=== PATIENT | female | born 1970 | race Caucasian/White ===

== ENCOUNTER 2017-05-14 17:50 | Emergency (ER) | payer OTHER ==
[2017-05-14 17:55] VITALS: TEMP 98.2
[2017-05-14] MEDS ORDERED: NS 500 ML IV ONE (17:57)
[2017-05-14] MEDS ORDERED: ASPIRIN 81 MG CHEWABLE TAB PO ONE (17:57)
--- NOTE | 2017-05-14 18:05 | CPEKG ---
Heart Rate: 74 RR Interval: 811 P-R Interval: 144 QRSD Interval: 86 QT Interval: 408 QTC Interval: 453 P [place]: 48 QRS [place]: 25 T Wave [place]: 35 EKG Severity - OTHERWISE NORMAL ECG - EKG Impression: SINUS RHYTHM EKG Impression: LOW VOLTAGE IN FRONTAL LEADS Electronically Signed By: Rashmi Reyna 14-May-2017 19:28:19
[2017-05-14 18:25] LABS: % IMMATURE GRANULYOCYTES 0.3 % (0.0-1.1); ABSOLUTE IMMATURE GRANULOCYTES 0.02 10^3/uL (0.00-0.10); ADD DIFF? NO; ADD MORPH? NO; ADD SCAN? NO; ATYPICAL LYMPHOCYTE FLAG 10 (0-99); FRAGMENT RBC FLAG 0 (0-99); HEMATOCRIT 39.9 % (38.0-47.0); HEMOGLOBIN 13.5 g/dL (12.6-16.3); LEFT SHIFT FLG 0 (0-99); LIPEMIA HEMOLYSIS FLAG 90 (0-99); MEAN CELL HEMOGLOBIN 32.4 pg (27.9-34.1); MEAN CELL HEMOGLOBIN CONCENTR. 33.8 g/dL (32.4-36.7); MEAN CELL VOLUME 95.7 fL (81.5-99.8); MEAN PLATELET VOLUME 9.2 fL (8.7-11.7); PLATELET CLUMPS FLAG 0 (0-99); PLATELET COUNT 322 10^3/uL (150-400); RED BLOOD CELL COUNT 4.17 10^6/uL (4.18-5.33); RED CELL DISTRIBUTION WIDTH 12.4 % (11.5-15.2)
[2017-05-14 18:35] LABS: INR 0.95 (0.83-1.16); PROTIME(PATIENT) 12.6 SEC (12.0-15.0)
[2017-05-14 18:36] LABS: APTT 25.2 SEC (23.0-38.0)
[2017-05-14 18:38] LABS: ANION GAP 9 mEq/L (8-16); CALCIUM 9.9 mg/dL (8.5-10.4); CARBON DIOXIDE 27 mEq/l (22-31); CHLORIDE 101 mEq/L (97-110); CREATININE 0.8 mg/dL (0.6-1.0); GLOMERULAR FILTRATION RATE > 60; GLUCOSE 92 mg/dL (70-100); POTASSIUM 3.8 mEq/L (3.5-5.2); SODIUM 137 mEq/L (134-144)
[2017-05-14 18:50] LABS: CREATINE KINASE-MB FRACTION 1.34 ng/mL (0.00-3.19); TROPONIN I < 0.012 ng/mL (0.000-0.034)
--- NOTE | 2017-05-14 19:01 | EDPHY ---
H & P Time Seen by Provider: 05/14/17 17:56 HPI/ROS: HPI Chest tightness, right leg pain. 38-year-old female by private vehicle with her . She has a history of rheumatoid arthritis. Her glassware finisher prescribed her diclofenac ointment for her arthritis. She applied some of this to her right leg on Monday evening as well as her right shoulder and right knee area. She reports that she developed a strain sensation in the right medial leg felt like something moving up through the vein of her right medial thigh. She reports that this resolved. She reports that yesterday evening she felt some chest tightness but no shortness of breath. This then persisted throughout the day. She did a Google search on her medications side effects. And is concerned because blood clots or a potential side effect. She is concerned about a blood clot in her right lower extremity and a possible pulmonary embolism as a source of her chest tightness. No history of diabetes. No history of hypertension, hyperlipidemia. No significant family history of coronary artery disease. She is a nonsmoker. ROS: Constitutional: No fever, no chills. No weakness. Eyes: No discharge. No changes in vision. ENT: No sore throat. No nasal congestion or rhinorrhea. Respiratory: No cough. No shortness of breath. Cardiac: As above, no palpitations. Gastrointestinal: No abdominal pain, no vomiting, no diarrhea. Genitourinary: No hematuria. No dysuria or increased frequency with urination. Musculoskeletal: No back pain. No neck pain. No myalgias or arthralgias. As above. Skin: No rashes. Neurological: No headache. No focal weakness or altered sensation. Past medical history: Migraine headaches, rheumatoid arthritis. As above. Social history: Nonsmoker. Social alcohol. Here with her . Physical Exam: General Appearance: Alert, mildly anxious. This patient is responding to questions appropriately and in full sentences. This patient appears well- hydrated and well-nourished. Eyes: Pupils equal and round no pallor or injection. No lid edema, erythema or injection. Respiratory: There are no retractions, lungs are clear to auscultation with good air movement bilaterally. Cardiovascular: Regular rate and rhythm. No murmur. Gastrointestinal: Abdomen is soft and nontender, no masses, bowel sounds normal. No focal tenderness at McBurney's point. No Hairston sign. Neurological: Motor sensory function is grossly intact. Cranial nerves are normal. Gait is normal. Skin: Warm and dry, no rashes. Musculoskeletal: Neck is supple and nontender. Extremities are symmetrical. Right lower extremity exam, no palpable cords on palpation of her calf and popliteal fossa area. Negative Owen sign. Normal soft tissues on palpation and inspection of her medial right thigh. Right lower extremity is neurovascularly intact. Psychiatric: No agitation. No depression. Database: EKG: EKG time is 6:03 p.m.; EKG shows a narrow complex normal sinus rhythm with a ventricular rate of 74. Low voltage in frontal leads noted. The LA, QRS, QT intervals are within normal limits. There are no ST-T wave changes indicative of ischemic or injury pattern. No evidence of right heart strain. Interpreted by me. Imaging: Chest x-ray AP portable; the cardiac mediastinal silhouette is unremarkable. No evidence of infiltrate or pneumothorax. No acute cardiopulmonary disease process noted. Interpreted by me. Procedures: Emergency department course: IV placed. Vital signs reviewed. EKG obtained and reviewed by myself. She was given 324 mg of chewed aspirin. 7:00 p.m., patient re-evaluated. Resting comfortably at this time. No shortness of breath. Denies any significant chest discomfort. 7:20 p.m., patient re-evaluated. Discussed results of all diagnostic tests. Patient is feeling comfortable and denies any symptoms at this time. I discussed admission for observation overnight and serial cardiac enzymes. She does not want to do this. The patient competently engages in shared decision making. They demonstrate capacitance to make decisions and they understand the risks of declining admission. The patient will not use diclofenac again. She has an alternative that will be prescribed to her by her glassware finisher. Return to emergency department precautions were reviewed with her and her thoroughly. Follow-up was discussed. All of their questions were answered. She was discharged in good condition. Differential Diagnosis: The differential diagnosis on this patient includes but is not limited to anxiety reaction, medication reaction. DVT, pulmonary embolism, acute coronary syndrome unlikely. This represents a partial list of diagnoses considered. These considerations are based on history, physical exam, past history, reassessment and diagnostic testing. Smoking Status: Never smoked Constitutional: Initial Vital Signs Temperature (C) 36.8 C 05/14/17 17:52 Heart Rate 81 05/14/17 17:52 Respiratory Rate 18 05/14/17 17:52 Blood Pressure 147/59 H 05/14/17 17:52 O2 Sat (%) 98 05/14/17 17:52 O2 Delivery Mode Room Air Allergies/Adverse Reactions: amoxicillin trihydrate [From Augmentin] Allergy (Verified 05/14/17 17:51) potassium clavulanate [From Augmentin] Allergy (Verified 05/14/17 17:51) Tetanus Vaccines and Toxoid [Tetanus Vaccines & Toxoid] Allergy (Verified 17:51) Home Medications: Medication Instructions Recorded Escitalopram Oxalate [Lexapro 10 10 mg PO 11/06/12 MG (RX)] Hydroxychloroquine Sulfate 0 mg PO 11/06/12 [Plaquenil] Rizatriptan Benzoate [Maxalt] 10 mg PO 11/06/12 TRAMADOL HCL [Ultram ER 300mg] 0 mg PO 11/06/12 Clindamycin 3 tab PO TID 7 Days cap 09/18/15 Prednisone 09/18/15 Prevacid 09/18/15 Sulfamethox/Tmp 800/160 mg 1 tab PO BID #14 tab 09/18/15 [Bactrim DS] oxyCODONE IR [Oxycodone HCl Ir] 1 - 2 tab PO Q6 PRN #15 tab 09/18/15 Diclofenac Sodium 05/14/17 Medical Decision Making - Diagnostics Imaging Results: Imaging Impressions Chest X-Ray 05/14/17 17:57 Impression: Negative chest. - Data Points Laboratory Results: Laboratory Results 05/14/17 18:15 05/14/17 18:15 05/14/17 05/14/17 05/14/17 18:15 18:15 18:15 WBC 7.87 10^3/uL 10^3/uL (3.80-9.50) RBC 4.17 10^6/uL L 10^6/uL (4.18-5.33) Hgb 13.5 g/dL g/dL (12.6-16.3) Hct 39.9 % % (38.0-47.0) MCV 95.7 fL fL (81.5-99.8) MCH 32.4 pg pg (27.9-34.1) MCHC 33.8 g/dL g/dL (32.4-36.7) RDW 12.4 % % (11.5-15.2) Plt Count 322 10^3/uL 10^3/uL (150-400) MPV 9.2 fL fL (8.7-11.7) Neut % (Auto) 51.9 % % (39.3-74.2) Lymph % (Auto) 35.3 % % (15.0-45.0) [place] % (Auto) 8.5 % % (4.5-13.0) Eos % (Auto) 2.7 % % (0.6-7.6) Baso % (Auto) 1.3 % % (0.3-1.7) Nucleat RBC Rel Count 0.0 % % (0.0-0.2) Absolute Neuts (auto) 4.09 10^3/uL 10^3/uL (1.70-6.50) Absolute Lymphs (auto) 2.78 10^3/uL 10^3/uL (1.00-3.00) Absolute Monos (auto) 0.67 10^3/uL 10^3/uL (0.30-0.80) Absolute Eos (auto) 0.21 10^3/uL 10^3/uL (0.03-0.40) Absolute Basos (auto) 0.10 10^3/uL 10^3/uL (0.02-0.10) Absolute Nucleated RBC 0.00 10^3/uL 10^3/uL (0-0.01) Immature Gran % 0.3 % % (0.0-1.1) Immature Gran # 0.02 10^3/uL 10^3/uL (0.00-0.10) PT 12.6 SEC SEC (12.0-15.0) INR 0.95 (0.83-1.16) APTT 25.2 SEC SEC (23.0-38.0) D-Dimer < 0.27 ug/mLFEU ug/mLFEU (0.00-0.50) Sodium 137 mEq/L mEq/L (134-144) Potassium 3.8 mEq/L mEq/L (3.5-5.2) Chloride 101 mEq/L mEq/L (97-110) Carbon Dioxide 27 mEq/l mEq/l (22-31) Anion Gap 9 mEq/L mEq/L (8-16) BUN 6 mg/dL L mg/dL (7-23) Creatinine 0.8 mg/dL mg/dL (0.6-1.0) Estimated GFR > 60 Glucose 92 mg/dL mg/dL (70-100) Calcium 9.9 mg/dL mg/dL (8.5-10.4) Creatine Kinase 102 IU/L IU/L (0-156) CK-MB (CK-2) Fraction 1.34 ng/mL ng/mL (0.00-3.19) Troponin I < 0.012 ng/mL ng/mL (0.000-0.034) Medications Given: Discontinued Medications Aspirin (Aspirin) 324 mg PO EDNOW ONE Stop: 05/14/17 17:58 Last Admin: 05/14/17 18:24 Dose: 324 mg Sodium Chloride (Ns) 500 mls @ 1,000 mls/hr IV EDNOW ONE PRN Reason: Protocol Stop: 05/14/17 18:26 Last Admin: 05/14/17 18:25 Dose: 500 mls Departure - Departure Disposition: Home, Routine, Self-Care Clinical Impression: Chest discomfort, Evaluate for DVT, Medication reaction Condition: Good Instructions: Chest Pain (ED) Additional Instructions: Read and follow provided instructions. Follow-up with your glassware finisher regarding a new medication to replace the diclofenac. If you have further concerns regarding her chest tightness. I have provided you with a referral to 1 of our cardiologists. Return to the emergency department for worsening chest pain, shortness of breath or other serious concerns. Referrals: Binu Fletcher MD [Medical Doctor] - As per Instructions
[2017-05-14 19:36] VITALS: BP 115/70; PULSE 71; RESP 13; O2SAT 97
== END 2017-05-14 19:36 | disposition home or self-care (01) ==
DX: R07.89 Other chest pain (principal); I82.401 Acute embolism and thrombosis of unspecified deep veins of right lower extremity; T39.395A Adverse effect of other nonsteroidal anti-inflammatory drugs [NSAID], initial encounter; E86.9 Volume depletion, unspecified

== ENCOUNTER → 2018-10-18 | Outpatient (CLI) | payer OTHER | LOC: CIMAGING 08:13 | PROVIDERS: ATTEND Obstetrics & Gynecology | DX: Z12.31 Encounter for screening mammogram for malignant neoplasm of breast (principal); Z80.3 Family history of malignant neoplasm of breast ==